=== PATIENT | male | born 1985 | race Caucasian/White ===

== ENCOUNTER 2018-10-18 21:31 | Emergency (ER) | payer SELFPAY ==
[2018-10-18 21:38] VITALS: BP 148/102; PULSE 112; TEMP 97.7; BMI 41.3
[2018-10-18] MEDS ORDERED: CLINDAMYCIN HCL 150 MG CAPSULE (FP) PO ONE (23:17)
[2018-10-18] MEDS ORDERED: ACETAMINOPHEN 500 MG TABLET (FP) PO ONE (23:17)
[2018-10-18] MEDS ORDERED: ACETAMINOPHEN 325 MG TABLET (FP) ONE (23:19)
[2018-10-18] MEDS ORDERED: CLINDAMYCIN HCL 150 MG CAPSULE (FP) ONE (23:20)
[2018-10-18] MEDS ORDERED: ACETAMINOPHEN 325 MG TABLET (FP) PO ONE (23:25)
--- NOTE | 2018-10-19 00:19 | PDOC ---
Documentation entered by Sanchez Fernandez SCRIBE, acting as scribe for Alexandra Pinedo MD. Alexandra Pinedo MD: This documentation has been prepared by the warreneJim Aiswarya, SCRIBE, under my direction and personally reviewed by me in its entirety. I confirm that the documentation accurately reflects all work, treatment, procedures, and medical decision making performed by me. History of Present Illness - General Chief Complaint: Pain, Acute Stated Complaint: SWELLING AND PAIN TO RIGHT INDEX FINGER Time Seen by Provider: 10/18/18 21:33 History Source: Patient Exam Limitations: No Limitations - History of Present Illness Initial Comments: 10/18/18 22:33 The patient is a 33 year old male, with no significant PMH, who presents to the emergency department with one day of right index finger pain. The patient notes swelling, erythema and tenderness to the right index finger accompanied with fluctuance and purulence. He states he bit his cuticle few days ago and then noted swelling around his nail. He also reports hitting his right index finger in the area of inflammation and had notes an increase in pain . The patient is able to move his finger but notes mild pain. The patient denies any numbness or tingling. Denies any cut or other injuries. Denies any neurological deficit. Allergies: NKDA Past surgical history: None reported Social history: Smokes marijuana and drinks occasionally PCP: None reported Past History - Past Medical History Allergies/Adverse Reactions: Allergies Allergy/AdvReac Type Severity Reaction Status Date / Time No Known Allergies Allergy Verified 10/18/18 21:32 Home Medications: Ambulatory Orders Clindamycin HCl 300 mg PO TID #15 capsule 10/18/18 COPD: No Other medical history: DENIES - Immunization History Immunization Up to Date: Yes - Suicide/Smoking/Psychosocial Hx Smoking History: Never smoked Have you smoked in the past 12 months: No Information on smoking cessation initiated: No Hx Alcohol Use: Yes (SOCIALLY) Drug/Substance Use Hx: Yes (MARIJUANA SOCIALLY) Review of Systems - Review of Systems Able to Perform ROS?: Yes Comments:: 10/18/18 22:33 GENERAL/CONSTITUTIONAL: No fever or chills. No weakness. HEAD, EYES, EARS, NOSE AND THROAT: No change in vision. No ear pain or discharge. No sore throat. CARDIOVASCULAR: No chest pain or shortness of breath. RESPIRATORY: No cough, wheezing, or hemoptysis. GASTROINTESTINAL: No nausea, vomiting, diarrhea or constipation. GENITOURINARY: No dysuria, frequency, or change in urination. MUSCULOSKELETAL:+Right index pain. NEUROLOGIC: No headache, vertigo, loss of consciousness, or change in strength/ sensation. ENDOCRINE: No increased thirst. No abnormal weight change. HEMATOLOGIC/LYMPHATIC: No anemia, easy bleeding, or history of blood clots. ALLERGIC/IMMUNOLOGIC: No hives or skin allergy. *Physical Exam - Vital Signs Last Vital Signs Temp Pulse Resp BP Pulse Ox 97.7 F 112 H 16 148/102 H 100 10/18/18 21:33 10/18/18 21:33 10/18/18 21:33 10/18/18 21:33 10/18/18 21:33 - Physical Exam Comments: 10/18/18 22:34 GENERAL: Awake, alert, and fully oriented, in no acute distress HEAD: No signs of trauma LUNGS: Breath sounds equal, clear to auscultation bilaterally. No wheezes, and no crackles HEART: Regular rate and rhythm, normal S1 and S2, no murmurs, rubs or gallops EXTREMITIES: +Right index distal phalanx erythematous, edematous and tenderness on palpation with purulence and fluctuance of the radial aspect of the eponychium. No lymphangitic streak NEUROLOGICAL: Cranial nerves II through XII grossly intact. Normal speech, normal gait SKIN:Warm, Dry, normal turgor, no rashes or lesions noted. Procedures - Incision and Drainage I&D Site: Right: Paronychia (2nd finger) Betadine cleansed: No (Hibiclens/ethanol) Anesthesia: 1% Lidocaine Volume(ml): 4 Blade Size: 11 Attempts: 1 Complications: none Dressing: Yes (sterile gauze) Progress: Digital block of right second finger performed using a total of 4 mL of 1% lidocaine (2 mL infiltrated in medial portion of base of finger and 2 mL infiltrated in lateral base of finger) . After sufficient anesthesia achieved, area of paronychia cleansed with Hibiclens/ethanol solution and draped. 1/2 cm linear incision made in the area of paronychia using a #11 blade. Copious amount of purulent material drained from the area. Culture and sensitivity of this sent. Area was thoroughly irrigated using 30 mL of sterile normal saline. Wound was covered with sterile gauze dressing. Patient tolerated procedure well. Medical Decision Making - Medical Decision Making This 33-year-old man with no significant past medical history and no previous history of paronychia or other skin infection presents with a few day history of progressive pain and swelling at the nail border. The patient bites his nails and cuticles. No history of resistant organism colonization or infection. Exam as noted above. Clinical presentation most consistent with acute paronychia. Drainage of paronychia performed as noted above. Sample of pus that was drained sent for culture and sensitivity. Because of the significant amount of soft tissue infection around the area of the nail, the patient started on clindamycin 300 mg 3 times a day. First dose given here in the emergency room. Patient will continue warm soaks to the area of the paronychia and have a wound check by his PMD in the next 3-4 days. *DC/Admit/Observation/Transfer Diagnosis at time of Disposition: Paronychia of finger Qualifiers: Laterality: right Qualified Code(s): L03.011 - Cellulitis of right finger - Discharge Dispostion Disposition: HOME Condition at time of disposition: Stable - Prescriptions Prescriptions: Clindamycin HCl 300 mg PO TID #15 capsule - Referrals - Patient Instructions Printed Discharge Instructions: Paronychia Additional Instructions: Elevate right index finger at heart level or above as much as possible for the next 1-2 days Keep area covered, especially at work; no manual labor at work for the next 5 days Warm water soaks for 15 minutes 2-3 times a day for the next 3 days Clindamycin 300 mg 3 times a day for the next 5 days Tylenol/Motrin/naproxen as needed for pain Follow-up with your doctor within the next 3-4 days for wound check Return to ER if you have severe pain/swelling/redness of wound - Post Discharge Activity Forms/Work/School Notes: Back to Work
== END 2018-10-18 23:32 | disposition home or self-care (01) ==
LOC: FER 21:31
PROC: 0H9QXZZ Drainage of Finger Nail, External Approach (ICD-10-PCS; principal; 2018-10-18)
DX: L03.011 Cellulitis of right finger (principal)
CPT/HCPCS: 87070; 87076; 87077; 87205; 99281-25

== ENCOUNTER 2024-07-17 02:54 | Emergency (ER) | payer SELFPAY ==
[2024-07-17 03:01] VITALS: BP 153/86; PULSE 73; RESP 18; TEMP 97.7; BMI 39.5
[2024-07-17] MEDS ORDERED: FAMOTIDINE 20 MG TABLET ONE (03:41)
[2024-07-17] MEDS: FAMOTIDINE 20 MG TABLET PO ONE (03:45)
== END 2024-07-17 05:05 | disposition home or self-care (01) ==
LOC: JER 02:54
DX: L53.9 Erythematous condition, unspecified (principal); T78.40XA Allergy, unspecified, initial encounter
CPT/HCPCS: 99283-25